=== PATIENT | male | born 1930 | race Caucasian/White ===

== ENCOUNTER 2016-10-10 13:13 | Emergency (ER) | payer MEDICARE ==
[~2016-10-10] VITALS: Ht 170.2 cm; Wt 64.4 kg
[~2016-10-10 13:13] MED LIST: /PANT40TA; ACET65TA; ASPI81TA83; ATEN25TA; HYDR25TA6; LISI40TA; TIMO0.5S3; TRAVOPROST
[2016-10-10] MEDS ORDERED: CLOP75TA2 PO (13:33)
[2016-10-10] MEDS ORDERED: METO25TA74 PO (13:33)
[2016-10-10] MEDS ORDERED: LOSA50TA20 PO (13:33)
[2016-10-10] MEDS ORDERED: AMLO2.5T PO (13:33)
[2016-10-10] MEDS ORDERED: ATOR1TAB18 PO (13:33)
[2016-10-10 14:38] VITALS: BP 164/83
== END 2016-10-10 14:50 | disposition home or self-care (01) ==
LOC: M ED 14:05
DX: S01.512A Laceration without foreign body of oral cavity, initial encounter (principal); X58.XXXA Exposure to other specified factors, initial encounter; Y92.89 Other specified places as the place of occurrence of the external cause; Y93.89 Activity, other specified; Y99.8 Other external cause status; E11.9 Type 2 diabetes mellitus without complications; I10 Essential (primary) hypertension; I25.10 Atherosclerotic heart disease of native coronary artery without angina pectoris; F41.9 Anxiety disorder, unspecified; Z79.899 Other long term (current) drug therapy; Z79.82 Long term (current) use of aspirin; Z79.01 Long term (current) use of anticoagulants; Z87.891 Personal history of nicotine dependence

== ENCOUNTER 2016-10-10 19:49 | Emergency (ER) | payer MEDICARE ==
[~2016-10-10] VITALS: Ht 172.7 cm; Wt 64.4 kg
[~2016-10-10 19:49] MED LIST changes: +AMLO2.5T PO; +ATOR1TAB18 PO; +CLOP75TA2 PO; +LOSA50TA20 PO; +METO25TA74 PO
[2016-10-10 20:06] VITALS: BP 156/74
== END 2016-10-10 22:52 | disposition home or self-care (01) ==
LOC: M ED 21:11
DX: S01.512A Laceration without foreign body of oral cavity, initial encounter (principal); X58.XXXA Exposure to other specified factors, initial encounter; Y92.89 Other specified places as the place of occurrence of the external cause; Y93.89 Activity, other specified; Y99.8 Other external cause status; I10 Essential (primary) hypertension; Z79.02 Long term (current) use of antithrombotics/antiplatelets; Z79.82 Long term (current) use of aspirin; Z79.899 Other long term (current) drug therapy

== ENCOUNTER → 2017-10-24 | Outpatient (REF) | payer MEDICARE ==
[2017-10-25 13:03] LABS: VITAMIN B12 LEVEL 264 PG/ML (247-911)
[2017-10-25 13:04] LABS: FERRITIN 105 NG/ML (26-388); FOLATE 9.7 NG/ML (>5.4); IRON (FE) 82 UG/DL (65-175); PERCENT SATURATION 28.5 % (19.7-50.0); TOTAL IRON BINDING CAPACITY 288 UG/DL (250-450)
== END ==
LOC: M LAB REF 11:56
DX: D64.9 Anemia, unspecified (principal)
CPT/HCPCS: 82746

== ENCOUNTER → 2018-02-08 | Outpatient (REF) | payer MEDICARE ==
[2018-02-08 13:52] LABS: FERRITIN 115 NG/ML (26-388); IRON (FE) 99 UG/DL (65-175); PERCENT SATURATION 36.7 % (19.7-50.0); TOTAL IRON BINDING CAPACITY 270 UG/DL (250-450)
== END ==
LOC: M LAB REF 12:59
DX: D64.9 Anemia, unspecified (principal)
CPT/HCPCS: 83550

== ENCOUNTER → 2018-05-07 | Outpatient (REF) | payer MEDICARE ==
[2018-05-07 14:16] LABS: URIC ACID 4.7 MG/DL (3.5-7.2)
== END ==
LOC: M LAB REF 12:56
DX: M10.9 Gout, unspecified (principal)
CPT/HCPCS: 84550